=== PATIENT | male | born 1965 | race Caucasian/White ===

== ENCOUNTER 2016-06-26 22:31 | Emergency (ER) | payer MEDICAID ==
[2016-06-26 22:45] VITALS: BMI 27.3
[2016-06-26 22:50] VITALS: BP 114/61; PULSE 85; RESP 16; TEMP 98.6; O2SAT 98
[2016-06-26] MEDS ORDERED: Sodium Chloride 0.9% 1,000 ML IV STA (23:17)
[2016-06-27 00:20] LABS: ADD MANUAL DIFF? NO
[2016-06-27 00:33] LABS: BASO # 0.05 K/mm3 (0.0-2.0); BASO % 0.6 % (0.0-3.0); EOS % 0.2 % (1.5-5.0); GRAN # 5.86 (1.4-6.5); GRAN % 70.3 % (50.0-68.0); HEMATOCRIT 39.6 % (42.0-52.0); LYMPH # 1.5 (1.2-3.4); LYMPH % 17.8 % (22.0-35.0); MEAN CELL VOLUME 84.1 fL (80.0-105.0); MEAN CORPUSCULAR HEMOGLOBIN 29.1 pg (25.0-35.0); MEAN CORPUSCULAR HGB CONC 34.6 g/dl (31.0-37.0); MEAN PLATELET VOLUME 10.2 fl (7.0-11.0); MONO # 0.9 (0.1-0.6); MONO % 11.1 % (1.0-6.0); PLATELET COUNT 303 10^3/uL (120.0-450.0); RED CELL DISTRIBUTION WIDTH 13.1 % (11.5-14.5); WHITE BLOOD COUNT 8.4 10^3/ul (4.5-11.0)
[2016-06-27 00:42] LABS: ALB/GLOB RATIO 1.2 (1.1-1.8); ALKALINE PHOSPHATASE 47 U/L (38-133); ALT/SGPT 36 U/L (7-56); AMYLASE 68 U/L (35-125); AST/SGOT 20 U/L (15-59); BILIRUBIN,TOTAL 0.4 mg/dL (0.2-1.3); BLOOD UREA NITROGEN 15 mg/dL (7-21); CALCIUM 8.9 mg/dL (8.4-10.5); CARBON DIOXIDE 25 mmol/L (21-33); CHLORIDE 101 mmol/L (98-107); GFR AFRICAN-AMERICAN > 60; GLUCOSE,RANDOM 151 mg/dL (70-110); LIPASE 57 U/L (23-300); SODIUM 135 mmol/L (132-148); TOTAL PROTEIN 7.2 g/dL (5.8-8.3)
--- NOTE | 2016-06-27 01:16 | ED PDOC ---
Arrival/HPI - General Historian: Patient - History of Present Illness Time/Duration: Other (1 day) Symptom Onset: Gradual Symptom Course: Unchanged Activities at Onset: Rest, Light Context: Home - General Chief Complaint: Fever Time Seen by Provider: 06/26/16 22:51 - History of Present Illness Narrative History of Present Illness (Text): 06/27/16 01:09 51 year old male, with hx of diabetes who presents to the Emergency department complaining of flu-like symptoms, and sore throat for 1 day. No vomiting/ diarrhea. Patient states last week his son was sick with similar symptoms and was diagnosed with the flu. Patient states he did not take his temperature at home but notes a subjective fever. Patient denies taking any medication at home. Patient denies any chills, chest pain, shortness of breath, abdominal pain , diarrhea, urinary symptoms, back pain, neck pain, dizziness, or any other complaints. (Page Nicholson) Past Medical History - Provider Review Nursing Documentation Reviewed: Yes - Infectious Disease Hx of Infectious Diseases: None - Psychiatric Hx Substance Use: No - Anesthesia Hx Anesthesia: No Family/Social History - Physician Review Nursing Documentation Reviewed: Yes Family/Social History: No Known Family HX Smoking Status: Never Smoked Hx Alcohol Use: No Hx Substance Use: No Allergies/Home Meds Allergies/Adverse Reactions: Allergies No Known Allergies Allergy (Verified 06/26/16 22:45) Review of Systems - Physician Review All systems were reviewed & negative as marked: Yes - Review of Systems Constitutional: Fevers (+subjective fever) Eyes: Normal ENT: Sore Throat Respiratory: Normal. absent: SOB, Cough Cardiovascular: Normal. absent: Chest Pain, Palpitations, Syncope Gastrointestinal: absent: Abdominal Pain, Diarrhea, Nausea, Vomiting Genitourinary Male: Normal. absent: Dysuria, Frequency, Hematuria, Urinary Output Changes Musculoskeletal: Normal. absent: Back Pain, Neck Pain Skin: Normal. absent: Rash Neurological: Headache. absent: Dizziness Endocrine: Normal Hemo/Lymphatic: Normal Psychiatric: Normal Physical Exam Vital Signs Reviewed: Yes Temperature: Afebrile Blood Pressure: Normal Pulse: Regular Respiratory Rate: Normal Appearance: Positive for: Well-Appearing, Non-Toxic, Comfortable Pain Distress: None Mental Status: Positive for: Alert and Oriented X 3 - Systems Exam Head: Present: Atraumatic, Normocephalic Pupils: Present: PERRL Extroacular Muscles: Present: EOMI Conjunctiva: Present: Normal Ears: Present: Normal, NORMAL TM, Normal Canal. No: Erythema, TM Bulging, TM Perf Mouth: Present: Moist Mucous Membranes. No: Drooling, Trismus Pharnyx: Present: Normal. No: ERYTHEMA, EXUDATE, TONSILS ENLARGED, Peritonsilar Swelling, Uvular Deviation, Muffled/Hoarse Voice, Strider, Soft Palate/Uvular Edema Nose (External): Present: Atraumatic Nose (Internal): Present: Normal Inspection Neck: Present: Normal Range of Motion Respiratory/Chest: Present: Clear to Auscultation, Good Air Exchange. No: Respiratory Distress, Accessory Muscle Use Cardiovascular: Present: Regular Rate and Rhythm, Normal S1, S2. No: Murmurs Abdomen: Present: Normal Bowel Sounds. No: Tenderness, Distention, Peritoneal Signs Upper Extremity: Present: Normal Inspection. No: Cyanosis, Edema Lower Extremity: Present: Normal Inspection. No: Edema Neurological: Present: GCS=15, CN II-XII Intact, Speech Normal Skin: Present: Warm, Dry, Normal Color. No: Rashes Psychiatric: Present: Alert, Oriented x 3, Normal Insight, Normal Concentration Vital Signs Temp Pulse Resp BP Pulse Ox 06/26/16 22:49 98.6 F 85 16 114/61 98 Medical Decision Making - Lab Interpretations I have reviewed the lab results: Yes ED Course and Treatment: 06/27/16 01:09 Impression: 51 year old male complaining of flu-like symptoms x 1 day. Plan: -- Labs, -- Rapid flu/rapid strep -- IV fluids -- Toradol -- Tylenol -- Reassess and disposition Progress Notes: cbc; wnl cmp; glucose; 151; pt with hx of DM did not taken his sugar today. rapid flu; negative rapid strep; negative Even though rapid flu is negative patient with son who had positive flu. will treat for influenza with tamiflu pt reassessment; pt feeling much better after medications. vitals stable. discussed all results in depth using cooper helper telegraph office telephone clerk #; [phone] I've advised follow-up with the primary care physician tomorrow. I've advised increasing fluids. I've advised taking Tamiflu twice daily 5 days. I've advised immediate return if symptoms worsen persists or if new concerning symptoms develop. I've advised Motrin every 6 hours as needed for pain and fever reduction Patient verbalizes understanding of discharge instructions and need for immediate followup. all aspects of this case were discussed the attending of record. Impression: Influenza Motrin every 6 hours as needed for pain/fever reduction Tamiflu twice daily 5 days Increase fluids Follow-up with a primary care physician tomorrow Return immediately if symptoms worsen persists or if new concerning symptoms develop (Page Nicholson) - Lab Interpretations Lab Results: 06/27/16 00:10 06/27/16 00:10 Lab Results 06/27/16 00:49: Influenza Typ A,B (EIA) Negative for flu a/b, Grp A Beta Strep Ag Negative 06/27/16 00:10: WBC 8.4, RBC 4.71, Hgb 13.7 L, Hct 39.6 L, MCV 84.1, MCH 29.1, MCHC 34.6, RDW 13.1, Plt Count 303, MPV 10.2, Gran % 70.3 H, Lymph % (Auto) 17.8 L, [place] % (Auto) 11.1 H, Eos % (Auto) 0.2 L, Baso % (Auto) 0.6, Gran # 5.86 , Lymph # 1.5, [place] # 0.9 H, Eos # 0.0, Baso # 0.05, Sodium 135, Potassium 4.0, Chloride 101, Carbon Dioxide 25, Anion Gap 13, BUN 15, Creatinine 1.0, Est GFR ( Amer) > 60, Est GFR (Non-Af Amer) > 60, Random Glucose 151 H, Calcium 8.9, Total Bilirubin 0.4, AST 20, ALT 36, Alkaline Phosphatase 47, Total Protein 7.2, Albumin 3.9, Globulin 3.3, Albumin/Globulin Ratio 1.2, Amylase 68, Lipase 57 - Medication Orders Current Medication Orders: Discontinued Medications Acetaminophen (Tylenol 325mg Tab) 975 mg PO STAT STA Stop: 06/26/16 23:18 Last Admin: 06/26/16 23:30 Dose: 975 MG MAR Pain/Vitals Document 06/26/16 23:30 ILIANA (Rec: 06/27/16 02:20 ILIANA [facility] [id number]) Pain Reassessment Is This A Pain ReAssessment? No Sleep Is patient sleeping during reassessment? No Presence of Pain Presence of Pain Yes Pain Scale Used Pain Scale Used Numeric Location Pain Location Body Actuary Description Intermittent Intensity 5 Scale Used Numeric Sodium Chloride (Sodium Chloride 0.9%) 1,000 mls @ 999 mls/hr IV .Q1H1M STA Stop: 06/27/16 00:17 Last Admin: 06/27/16 00:12 Dose: 999 MLS/HR eMAR Start Stop Document 06/27/16 00:12 GMD (Rec: 06/27/16 00:12 GMD [id number]) Intravenous Solution Start Date 06/27/16 Start Time 00:12 End Date 06/27/16 End time 01:13 Total Infusion Time 61 Ketorolac Tromethamine (Toradol) 30 mg IVP STAT STA Stop: 06/26/16 23:18 Last Admin: 06/27/16 00:12 Dose: 30 MG IVP Administration Document 06/27/16 00:12 GMD (Rec: 06/27/16 00:12 GMD [id number]) Charges for Administration # of IVP Administrations 1 Oseltamivir Phosphate (Tamiflu Cap) 75 mg PO STAT STA PRN Reason: Protocol Stop: 06/27/16 02:15 Last Admin: 06/27/16 02:46 Dose: 75 MG - Scribe Statement The provider has reviewed the documentation as recorded by the Scribe - Scribe Statement Liz Ramirez All medical record entries made by the Scribe were at my direction and personally dictated by me. I have reviewed the chart and agree that the record accurately reflects my personal performance of the history, physical exam, medical decision making, and the department course for this patient. I have also personally directed, reviewed, and agree with the discharge instructions and disposition. (Page Nicholson) Disposition/Present on Arrival - Present on Arrival Any Indicators Present on Arrival: No History of DVT/PE: No History of Uncontrolled Diabetes: No Urinary Catheter: No History of Decub. Ulcer: No History Surgical Site Infection Following: None - Disposition Have Diagnosis and Disposition been Completed?: Yes Disposition Time: 02:13 Patient Plan: Discharge - Disposition Diagnosis: Influenza Disposition: HOME/ ROUTINE Condition: GOOD Discharge Instructions (ExitCare): Influenza (ED) Additional Instructions: Motrin every 6 hours as needed for pain/fever reduction Tamiflu twice daily 5 days Increase fluids Follow-up with a primary care physician tomorrow Return immediately if symptoms worsen persists or if new concerning symptoms develop Prescriptions: Ibuprofen [Motrin] 600 mg PO Q6H PRN #20 tab PRN Reason: pain/fever reduction Oseltamivir [Tamiflu] 75 mg PO BID #10 cap Referrals: Vivian Viveros MD [Family Provider] - Follow up with primary Forms: WORK NOTE
== END 2016-06-27 02:47 | disposition home or self-care (01) ==
LOC: ED 22:31
DX: J11.1 Influenza due to unidentified influenza virus with other respiratory manifestations (principal)
CPT/HCPCS: 80053; 82150; 83690; 85025; 87070; 87430; 87804; 96361; 96374; 99282; J1885; J7040